=== PATIENT | male | born 1975 ===

== ENCOUNTER → 2021-11-03 17:25 | Outpatient (BNVA) | payer SELFPAY | PROVIDERS: Visit Provider Family Medicine | DX: I10 Essential (primary) hypertension (principal); R51.9 Headache, unspecified | CPT/HCPCS: 80053; 85025 ==

== ENCOUNTER 2022-07-01 21:47 | Emergency (ER) | payer SELFPAY ==
[2022-07-01 21:59] VITALS: BP 144/85; PULSE 102; RESP 20; TEMP 36.8; O2SAT 96; BMI 31.1
--- NOTE | 2022-07-01 22:06 | CTR_ITS ---
PROCEDURE INFORMATION: Exam: CT Head Without Contrast Exam date and time: 07/01/2022 10:15 PM Age: 47 years old Clinical indication: Stroke-like symptoms; Speech disturbance; Additional info: Symptoms of acute stroke TECHNIQUE: Imaging protocol: Computed tomography of the head without contrast. Radiation optimization: All CT scans at this facility use at least one of these dose optimization techniques: automated exposure control; mA and/or kV adjustment per patient size (includes targeted exams where dose is matched to clinical indication); or iterative reconstruction. Other technique: STROKE PROTOCOL was implemented. REPORTING DATA: Count of CT and Cardiac NM exams in prior 12 months: This patient has received 0 known CTs and 0 known cardiac nuclear medicine studies in the 12 months prior to the current study. COMPARISON: No relevant prior studies available. RADIATION DOSE METRICS: Total DLP (mGy-cm): 1298.18 FINDINGS: Brain: Normal. No hemorrhage. Unremarkable white matter. No mass effect. Cerebral ventricles: No ventriculomegaly. Paranasal sinuses: Visualized sinuses are unremarkable. No fluid levels. Mastoid air cells: Visualized mastoid air cells are well aerated. Bones/joints: Unremarkable. No acute fracture. Soft tissues: Unremarkable. CT/CT head thrombolytic [id number] IMPRESSION: No acute intracranial abnormality. ASSESSMENT: ASPECTS ([place] Stroke Program Early CT Score) is 10.
--- NOTE | 2022-07-01 22:06 | ECG_ITS ---
[facility] Test Date: 2022-07-01 Pat Name: Gopi Leonardo Department: Room: Gender: Male Accounting Intern: : 1975 Requested By: Carlos Issa Order Number: [id number] Cristiano MD: Abdullahi Sams M.D. Measurements Intervals [place] Rate: 94 P: 40 FL: 124 QRS: 22 QRSD: 98 T: 27 QT: 346 QTc: 435 Interpretive Statements SINUS RHYTHM No previous ECG available for comparison Electronically Signed On 07-02-2022 8:01:03 CDT by Abdullahi Sams M.D. [email or web address]
--- NOTE | 2022-07-01 22:14 | CTR_ITS ---
PROCEDURE INFORMATION: Exam: CTA Head With Contrast, Arteriography Exam date and time: 07/01/2022 10:20 PM Age: 47 years old Clinical indication: Stroke-like symptoms; Speech disturbance; Additional info: CVA TECHNIQUE: Imaging protocol: Computed tomographic angiography of the head with contrast. Exam focused on the arteries. 3D rendering (Not supervised by radiologist): MIP and/or 3D reconstructed images were created by the technologist. Radiation optimization: All CT scans at this facility use at least one of these dose optimization techniques: automated exposure control; mA and/or kV adjustment per patient size (includes targeted exams where dose is matched to clinical indication); or iterative reconstruction. Contrast material: OMNI 350; Contrast volume: 100 ml; Contrast route: INTRAVENOUS (IV); REPORTING DATA: Count of CT and Cardiac NM exams in prior 12 months: This patient has received 0 known CTs and 0 known cardiac nuclear medicine studies in the 12 months prior to the current study. COMPARISON: CT head thrombolytic [id number] 07/01/2022 10:15 PM RADIATION DOSE METRICS: Total DLP (mGy-cm): 539.9 FINDINGS: ANTERIOR CIRCULATION: Right internal carotid artery: Intracranial segment is patent with no significant stenosis. No aneurysm. Right middle cerebral artery: No occlusion or significant stenosis. No aneurysm. Right anterior cerebral artery: No occlusion or significant stenosis. No aneurysm. Left internal carotid artery: Intracranial segment is patent with no significant stenosis. No aneurysm. Left middle cerebral artery: No occlusion or significant stenosis. No aneurysm. Left anterior cerebral artery: No occlusion or significant stenosis. No aneurysm. POSTERIOR CIRCULATION: Right vertebral artery: No occlusion or significant stenosis. No aneurysm. Left vertebral artery: No occlusion or significant stenosis. No aneurysm. Basilar artery: No occlusion or significant stenosis. No aneurysm. Right posterior cerebral artery: No occlusion or significant stenosis. No aneurysm. Left posterior cerebral artery: No occlusion or significant stenosis. No aneurysm. Brain: No definite mass, mass effect, or midline shift. Cerebral ventricles: No ventriculomegaly. Bones/joints: Unremarkable. No acute fracture. Soft tissues: Unremarkable. PROCEDURE INFORMATION: Exam: CTA Neck With Contrast Exam date and time: 07/01/2022 10:20 PM Age: 47 years old Clinical indication: Stroke-like symptoms; Speech disturbance; Additional info: CVA TECHNIQUE: Imaging protocol: Computed tomographic angiography of the neck with contrast. 3D rendering (Not supervised by radiologist): MIP and/or 3D reconstructed images were created by the technologist. Radiation optimization: All CT scans at this facility use at least one of these dose optimization techniques: automated exposure control; mA and/or kV adjustment per patient size (includes targeted exams where dose is matched to clinical indication); or iterative reconstruction. Contrast material: OMNI 350; Contrast volume: 100 ml; Contrast route: INTRAVENOUS (IV); REPORTING DATA: Count of CT and Cardiac NM exams in prior 12 months: This patient has received 0 known CTs and 0 known cardiac nuclear medicine studies in the 12 months prior to the current study. COMPARISON: CT head thrombolytic [id number] 07/01/2022 10:15 PM RADIATION DOSE METRICS: Total DLP (mGy-cm): 1666 FINDINGS: Right common carotid artery: No stenosis. No dissection or occlusion. Right internal carotid artery: No stenosis of the extracranial segment. No dissection or occlusion. Right external carotid artery: No occlusion or stenosis of the origin. Left common carotid artery: No stenosis. No dissection or occlusion. Left internal carotid artery: No stenosis of the extracranial segment. No dissection or occlusion. Left external carotid artery: No occlusion or stenosis of the origin. Right vertebral artery: No stenosis. No dissection or occlusion. Left vertebral artery: No stenosis. No dissection or occlusion. Soft tissues: Normal. No significant soft tissue swelling. Bones/joints: No acute fracture. CT/CT angio headneck* [id number] IMPRESSION: No large vessel stenosis or occlusion. IMPRESSION: No carotid artery stenosis or occlusion. REFERENCES: NASCET CRITERIA. The degree of stenosis in the cervical segment of the internal carotid artery is based on NASCET criteria. Normal is no stenosis. Mild is less than 50% stenosis. Moderate is 50-69% stenosis. Severe is 70% to 99% stenosis. Total occlusion is no detectable patent lumen.
[2022-07-01 22:19] LABS: Basophils # 0.1 10^3/uL (0.0-0.1); Basophils % 0.7 %; Eosinophils % 0.2 %; Hematocrit 47.5 % (42.0-52.0); Hemoglobin 15.5 g/dL (11.7-16.6); Lymphocytes # 0.6 10^3/uL (0.8-4.8); Lymphocytes % 6.2 %; Mean Corpuscular HGB Conc 32.6 g/dL (30.0-36.0); Mean Corpuscular Hemoglobin 27.8 pg (28.0-34.0); Mean Corpuscular Volume 85.3 fl (80-94); Mean Platelet Volume 9.8 fL (7.4-10.4); Monocytes # 1.5 10^3/uL (0.2-0.9); Monocytes % 15.1 %; Neutrophils # 7.89 10^3/uL (1.8-7.7); Neutrophils % 77.6 %; Nucleated Red Blood Cells % 0 %; Platelet Count 346 10^3/cmm (130-400); Red Blood Count 5.57 10^6/uL (4.1-5.3); Red Cell Distribution Width 13.5 % (12.1-15.1); White Blood Count 10.2 10^3/uL (4.0-10.0)
[2022-07-01 22:19] LABS: Glucose Point of Care 114 mg/dL (70-110)
[2022-07-01] MEDS: iohexol 350 mg/mL 500 mL Btl (per mL) IV (22:20)
[2022-07-01 22:32] VITALS: BP 143/82; PULSE 95; RESP 16; O2SAT 97
[2022-07-01 22:33] LABS: INR 1.07 (0.8-1.2)
[2022-07-01 22:34] LABS: Alanine Aminotransferase 38 U/L (0-41); Albumin Level 4.4 g/dL (3.5-5.2); Alkaline Phosphatase 94 U/L (40-130); Anion Gap 15.3 (5-19); Aspartate Amino Transferase 30 U/L (0-40); Blood Urea Nitrogen 11 mg/dL (6-20); Carbon Dioxide 22 mmol/L (22-29); Chloride 103 mmol/L (98-107); Globulin 2.6 g/dL (1.3-4.6); Glomerular Filtration Rate 91.3 mL/min (90-130); Glucose 113 mg/dL (65-115); Osmolality Calculated 284 mOsm/kg (285-295); Partial Thromboplastin Time 35.7 SECONDS (23.9-36.7); Potassium 3.3 mmol/L (3.5-5.1); Sodium 137 mmol/L (136-145); Total Bilirubin 0.4 mg/dL (0.15-1.2)
[2022-07-01 22:45] VITALS: BP 134/82; PULSE 86; RESP 18; O2SAT 97
[2022-07-01 22:49] LABS: Urine Appearance Cloudy (CLEAR); Urine Color Yellow (Yellow); pH Urine 5 (5-7)
[2022-07-01 22:50] LABS: Add Urine Microscopic? YES; Bilirubin Urine Neg (Negative); Blood Urine 2+ (Negative); Glucose Urine UA Norm (Normal); Ketones Urine Negative (Negative); Leukocyte Esterase Urine Negative (Negative); Nitrate Urine Negative (Negative); Protein Urine Neg (Negative); Urobilinogen Urine Norm (Negative)
[2022-07-01 22:52] LABS: Bacteria Urine TRACE /hpf; Mucus Urine 1+ /hpf; RBC Urine 0-4 /hpf (0-2)
[2022-07-01 22:55] LABS: Amphetamines Screen Urine Negative (Negative); Barbiturates Screen Urine Negative (Negative); Benzodiazepines Screen Urine Negative (Negative); Cocaine Screen Urine Negative (Negative); Opiate Screen Urine Negative (Negative); PCP Screen Urine Negative (Negative); THC Screen Urine Negative (Negative)
[2022-07-01 23:00] VITALS: BP 128/82; PULSE 83; RESP 18; O2SAT 97
[2022-07-01 23:15] VITALS: BP 136/85; PULSE 83; RESP 18; O2SAT 98
[2022-07-01] MEDS: sodium chloride 0.9% 1,000 ML 999 ML IV (23:30)
[2022-07-01] MEDS: ketorolac 30 mg/mL INJ 15 MG IVP (23:31)
[2022-07-01 23:35] VITALS: BP 138/93; PULSE 78; RESP 18; O2SAT 97
--- NOTE | 2022-07-01 23:41 | ED_ITS ---
HPI - Altered Mental Status General: Chief Complaint: Altered Mental Status Stated Complaint: tongue heaviness, high bp Time Seen by Provider: 07/01/22 22:06 Source: patient Mode of arrival: ambulatory Limitations: no limitations History of Present Illness: 47-year-old male states to me he has felt just not right since 10 AM this morning. He states he had a mild headache he does have a history of headaches in the past. He states that he is felt lightheaded and dehydrated since 10 AM. He states roughly an hour ago he started having some weird feelings in his tongue with heaviness. States headaches currently 3 out of 10 he states he is feeling improved currently all of his symptoms of practically resolved except for mild headache. Denies any fevers. Associated symptoms: Deny depression Review of Systems Const: Reports: fatigue; Denies: fever(s), chills, body aches or change in appetite Eyes: Denies: blurry vision or eye discomfort ENMT: Denies: throat pain or dental pain Card: Denies: chest pain Resp: Denies: dyspnea GI: Denies: abdominal pain, nausea, vomiting or diarrhea : Denies: dysuria Musc: Denies: neck pain or back pain Skin/Breast: Denies: rash Neuro: Reports: headache(s) and weakness in extremities Psych: Denies: depression PFSH ED PFSH: Medical History Hypertension Social History Smoking and tobacco status: never smoked Smoking risk assessment/counseling performed?: No Alcohol intake: current Alcohol intake frequency: holidays/special occasions only Alcohol type: beer Desire information about alcohol rehabilitation?: No Counseling given: No Substance/Drug Use: never Desire information about substance/drug rehabilitation?: No Counseling given: No Adopted: No Caregiver/support person: Yes Lives independently: Yes Current occupational status: employed Current occupation: construction Current occupational exposures/hazards: Yes Current gender identity: Male Special leslie needs: No Physical Exam Const: COMMON NORMALS: no acute distress and patient oriented x3 HENMT: COMMON NORMALS: atraumatic HEAD & SCALP: atraumatic Eye: COMMON NORMALS: Equal, round and reactive pupils present and EOMs intact bilaterally PUPIL: Yes Equal, round and reactive pupils present Neck/C-Spine: COMMON NORMALS: full ROM and no meningeal signs Chest: COMMONS NORMALS: normal inspection of the chest Resp: COMMON NORMALS: normal respiratory effort and clear to auscultation bilaterally AUSCULTATION: clear to auscultation bilaterally Cardio: COMMON NORMALS: regular rate and regular rhythm RATE: regular rate RHYTHM: regular rhythm GI: INSPECTION: Yes normal to inspection Extremity: COMMON NORMALS: normal to inspection Neuro: COMMON NORMALS: patient oriented x3 MENINGEAL SIGNS: Yes no meningeal signs SPEECH: speech normal GAIT: Yes Normal gait present Psych: COMMON NORMALS: mental status grossly normal Skin: COMMON NORMALS: no rashes or lesions noted GENERAL SKIN EXAM: no rashes or lesions noted Course Vital Signs: Vital signs: Vital Signs Temperature 98.3 F 07/01/22 21:59 Pulse Rate 83 07/01/22 23:15 Respiratory Rate 18 07/01/22 23:15 Blood Pressure 136/85 07/01/22 23:15 Pulse Oximetry 98 07/01/22 23:15 MDM - Altered Mental Status Medical Decision Making Patient presents here with headache along with some lightheadedness. He has no signs of a stroke CT head and angio were both normal he feels much improved. Is able ambulate without any difficulty his headaches resolved no signs of meningitis or subarachnoid hemorrhage he is requesting to go home I feel he is stable for discharge he is to follow-up with PCP and return if worsening. Medical Records I reviewed the patient's medical records. Lab Data I reviewed the patient's lab results. 07/01/22 22:12 07/01/22 22:[address] 07/01/22 22:06 IMPRESSION: No acute intracranial abnormality. ASSESSMENT: ASPECTS ([place] Stroke Program Early CT Score) is 10. Head/Neck CTA 07/01/22 22:14 IMPRESSION: No large vessel stenosis or occlusion. IMPRESSION: No carotid artery stenosis or occlusion. REFERENCES: NASCET CRITERIA. The degree of stenosis in the cervical segment of the internal carotid artery is based on NASCET criteria. Normal is no stenosis. Mild is less than 50% stenosis. Moderate is 50-69% stenosis. Severe is 70% to 99% stenosis. Total occlusion is no detectable patent lumen. Laboratory Results WBC 10.2 10^3/uL (4.0-10.0) H 07/01/22 22:12 RBC 5.57 10^6/uL (4.1-5.3) H 07/01/22 22:12 Hgb 15.5 g/dL (11.7-16.6) 07/01/22 22:12 Hct 47.5 % (42.0-52.0) 07/01/22 22:12 MCV 85.3 fl (80-94) 07/01/22 22:12 MCH 27.8 pg (28.0-34.0) L 07/01/22 22:12 MCHC 32.6 g/dL (30.0-36.0) 07/01/22 22:12 RDW 13.5 % (12.1-15.1) 07/01/22 22:12 Plt Count 346 10^3/cmm (130-400) 07/01/22 22:12 MPV 9.8 fL (7.4-10.4) 07/01/22 22:12 Neut % (Auto) 77.6 % 07/01/22 22:12 Lymph % (Auto) 6.2 % 07/01/22 22:12 [place] % (Auto) 15.1 % 07/01/22 22:12 Eos % (Auto) 0.2 % 07/01/22 22:12 Baso % (Auto) 0.7 % 07/01/22 22:12 Neut # (Auto) 7.89 10^3/uL (1.8-7.7) H 07/01/22 22:12 Lymph # (Auto) 0.6 10^3/uL (0.8-4.8) L 07/01/22 22:12 [place] # (Auto) 1.5 10^3/uL (0.2-0.9) H 07/01/22 22:12 Eos # (Auto) 0.0 10^3/uL (0.0-0.8) 07/01/22 22:12 Baso # (Auto) 0.1 10^3/uL (0.0-0.1) 07/01/22 22:12 Nucleated RBC % (auto) 0 % 07/01/22 22:12 Nucleated RBCs # 0.0 /100WBC 05/27/23 22:12 PT 14.20 SECONDS (12.1-14.9) 07/01/22 22:12 INR 1.07 (0.8-1.2) 07/01/22 22:12 APTT 35.7 SECONDS (23.9-36.7) 07/01/22 22:12 Sodium 137 mmol/L (136-145) 07/01/22 22:12 Potassium 3.3 mmol/L (3.5-5.1) L 07/01/22 22:12 Chloride 103 mmol/L (98-107) 07/01/22 22:12 Carbon Dioxide 22 mmol/L (22-29) 07/01/22 22:12 Anion Gap 15.3 (5-19) 07/01/22 22:12 BUN 11 mg/dL (6-20) 07/01/22 22:12 Creatinine 0.9 mg/dL (0.7-1.2) 07/01/22 22:12 GFR Calculation 91.3 mL/min (90-130) 07/01/22 22:12 Glucose 113 mg/dL (65-115) 07/01/22 22:12 POC Glucose 114 mg/dL (70-110) H 07/01/22 22:15 Calculated Osmolality 284 mOsm/kg (285-295) L 07/01/22 22:12 Calcium 9.0 mg/dL (8.5-10.5) 07/01/22 22:12 Total Bilirubin 0.4 mg/dL (0.15-1.2) 07/01/22 22:12 AST 30 U/L (0-40) 07/01/22 22:12 ALT 38 U/L (0-41) 07/01/22 22:12 Alkaline Phosphatase 94 U/L (40-130) 07/01/22 22:12 Total Protein 7.0 g/dL (6.6-8.7) 07/01/22 22:12 Albumin 4.4 g/dL (3.5-5.2) 07/01/22 22:12 Globulin 2.6 g/dL (1.3-4.6) 07/01/22 22:12 Urine Color Yellow (Yellow) 07/01/22 22:34 Urine Appearance Cloudy (CLEAR) A 07/01/22 22:34 Urine pH 5 (5-7) 07/01/22 22:34 Ur Specific [place] 1.010 (1.005-1.030) 07/01/22 22:34 Urine Protein Neg (Negative) 07/01/22 22:34 Urine Glucose (UA) Norm (Normal) 07/01/22 22:34 Urine Ketones Negative (Negative) 07/01/22 22:34 Urine Blood 2+ (Negative) H 07/01/22 22:34 Urine Nitrate Negative (Negative) 07/01/22 22:34 Urine Bilirubin Neg (Negative) 07/01/22 22:34 Urine Urobilinogen Norm mg/dL (Negative) 07/01/22 22:34 Ur Leukocyte Esterase Negative (Negative) 07/01/22 22:34 Urine RBC 0-4 /hpf (0-2) H 07/01/22 22:34 Urine WBC None /hpf (0-5) 07/01/22 22:34 Ur Squamous Epith Cells None /hpf (0-5) 07/01/22 22:34 Amorphous Sediment Not Reportable 07/01/22 22:34 Urine Bacteria Trace /hpf (NONE) 07/01/22 22:34 Urine Mucus 1+ /hpf 07/01/22 22:34 Urine Opiates Screen Negative ng/mL (Negative) 07/01/22 22:34 Ur Barbiturates Screen Negative ng/mL (Negative) 07/01/22 22:34 Ur Phencyclidine Scrn Negative ng/mL (Negative) 07/01/22 22:34 Ur Amphetamines Screen Negative ng/mL (Negative) 07/01/22 22:34 U Benzodiazepines Scrn Negative ng/mL (Negative) 07/01/22 22:34 Urine Cocaine Screen Negative ng/mL (Negative) 07/01/22 22:34 U Marijuana (THC) Screen Negative ng/mL (Negative) 07/01/22 22:34 Discharge Plan Discharge Patient Disposition: Home Clinical Impression: Headache, Light-headed Condition: Stable Prescriptions: No Action amlodipine 10 mg tablet 10 mg PO DAILY Qty: 90 1RF valsartan 80 mg tablet 80 mg PO DAILY Qty: 90 1RF Discharge Orders: Discharge ED (Routine); Ordered 07/01/22 Ordered By: Carlos Issa Referrals: David Escamilla MD [Primary Care Provider] - 1-3 days Discharge Diet: Advance as tolerated Discharge Activity: Resume usual activity Patient Instructions: Acute Headache (ED), Lightheadedness (ED) Coding Level of Care Code ED Dental Hygiene Instructor for Marylou Paiz
[2022-07-02] VITALS: BP 148/96; PULSE 77; RESP 18; O2SAT 99
== END 2022-07-02 00:17 | disposition home or self-care (01) ==
PROVIDERS: Emergency Provider Emergency Medicine; PCP Family Medicine
DX: R51.9 Headache, unspecified (principal); R42 Dizziness and giddiness; I10 Essential (primary) hypertension
CPT/HCPCS: 36416; 70450; 70496; 70498; 80053; 80306; 81001; 82962; 85025; 85610; 85730; 93005; 96361; 96374; 99285; J1885; J7030; Q9967